=== PATIENT | female | born 1995 | race Caucasian/White ===

== ENCOUNTER → 2024-04-16 11:05 | Outpatient (REF) | payer OTHER, SELFPAY | LOC: HWRAD 11:05 | PROVIDERS: ATTENDING PHYSICIAN Clinical Nurse Specialist Women's Health | DX: Z36.87 Encounter for antenatal screening for uncertain dates (principal); Z34.01 Encounter for supervision of normal first pregnancy, first trimester | CPT/HCPCS: 76805 ==

== ENCOUNTER → 2024-05-20 12:12 | Outpatient (REF) | payer OTHER, SELFPAY | LOC: PNTC 12:12 | PROVIDERS: ATTENDING PHYSICIAN Advanced Practice Midwife | DX: Z34.82 Encounter for supervision of other normal pregnancy, second trimester (principal) | CPT/HCPCS: 76805 ==

== ENCOUNTER → 2024-08-26 13:33 | Outpatient (REF) | payer OTHER, MEDICAID, SELFPAY | LOC: PNTC 13:33 | PROVIDERS: ATTENDING PHYSICIAN Registered Nurse Women's Health Care, Ambulatory | DX: Z36.4 Encounter for antenatal screening for fetal growth retardation (principal) | CPT/HCPCS: 76816 ==